=== PATIENT | female | born 1955 | race Caucasian/White ===

== ENCOUNTER 2021-01-29 12:27 | Emergency (ER) | payer MEDICARE, MEDICAID ==
[2021-01-29] MEDS ORDERED: HYDROcodone/Acetaminophen 5/325 mg Tablet ONE (13:01)
== END 2021-01-29 14:40 | disposition home or self-care (01) ==
LOC: NAV ERS 12:27
DX: S22.31XA Fracture of one rib, right side, initial encounter for closed fracture (principal); S83.91XA Sprain of unspecified site of right knee, initial encounter; S70.01XA Contusion of right hip, initial encounter; M25.571 Pain in right ankle and joints of right foot; Z85.3 Personal history of malignant neoplasm of breast; Z79.82 Long term (current) use of aspirin; Z79.899 Other long term (current) drug therapy
CPT/HCPCS: 72170; 94799